=== PATIENT | female | born 1990 | race Two or more races ===

== ENCOUNTER 2019-02-27 07:59 | Outpatient (CLI) | payer OTHER | END 2019-02-27 08:02 | disposition home or self-care (01) | LOC: NUCLEAR 07:59 | DX: E05.00 Thyrotoxicosis with diffuse goiter without thyrotoxic crisis or storm (principal) | CPT/HCPCS: 78012; A9531 ==

== ENCOUNTER → 2019-03-17 | Outpatient (CLI) | payer OTHER | END | disposition home or self-care (01) | LOC: NUCLEAR 12:22 | DX: E05.00 Thyrotoxicosis with diffuse goiter without thyrotoxic crisis or storm (principal); E05.80 Other thyrotoxicosis without thyrotoxic crisis or storm | CPT/HCPCS: 79005; A9517 ==